=== PATIENT | female | born 1955 | race Caucasian/White ===

== ENCOUNTER 2021-06-21 09:35 | Emergency (ER) | payer SELFPAY ==
[~2021-06-21] VITALS: Ht 149.9 cm; Wt 88.5 kg
[2021-06-21] MEDS ORDERED: CASIRIVIMAB/IMDEVIMAB 10 ML in SODIUM CHLORIDE 0.9% 100 ML IV ONE (09:45)
[2021-06-21] MEDS ORDERED: KETOROLAC TROMETHAMINE 30 MG/ML VIAL IV STA (09:46)
[2021-06-21] MEDS ORDERED: SODIUM CHLORIDE 0.9% 100 ML ONE (09:51)
[2021-06-21 10:47] VITALS: BP 125/61
== END 2021-06-21 10:51 | disposition home or self-care (01) ==
LOC: ER 09:45
DX: U07.1 COVID-19 (principal); R50.9 Fever, unspecified; R05.9 Cough, unspecified; R53.81 Other malaise
CPT/HCPCS: 99283; J1885; J7050